=== PATIENT | male | born 1945 | race Caucasian/White ===

== ENCOUNTER 2020-09-17 07:23 | Day surgery (SDC) | payer OTHER, BC ==
[2020-09-15 11:01] VITALS: BMI 24.5
[2020-09-17] MEDS ORDERED: LIDOCAINE HCL 1%, 10 MG/ML (20ML VIAL) ONE (09:40)
[2020-09-17] MEDS ORDERED: oxyCODONE HCL 5 MG TABLET PO PRN (09:57)
[2020-09-17] MEDS ORDERED: ONDANSETRON 4 MG/2 ML VIAL IVPUSH PRN (09:57)
[2020-09-17] MEDS ORDERED: LACTATED RINGERS SOLUTION 1,000 ML IV SCH (10:00)
[2020-09-17] MEDS ORDERED: PROPOFOL 20 ML ONE ×2 (10:00)
[2020-09-17] MEDS ORDERED: BUPIVACAINE HCL/PF 0.5% (5 MG/ML) 30 ML VIAL IJ ONE (10:14)
[2020-09-17] MEDS ORDERED: LIDOCAINE HCL 1%, 10 MG/ML (50 mL VIAL) INF ONE (10:19)
[2020-09-17 11:13] VITALS: TEMP 97.8
[2020-09-17 12:09] VITALS: BP 110/65; PULSE 81
== END 2020-09-17 12:00 | disposition home or self-care (01) ==
LOC: FASU 07:23
PROVIDERS: ATTEND Orthopaedic Surgery
PROC: 0RBN4ZZ Excision of Right Wrist Joint, Percutaneous Endoscopic Approach (ICD-10-PCS; 2020-09-17)
PROC: 01N50ZZ Release Median Nerve, Open Approach (ICD-10-PCS; principal; 2020-09-17 10:35)
DX: G56.01 Carpal tunnel syndrome, right upper limb (principal); M65.831 Other synovitis and tenosynovitis, right forearm
CPT/HCPCS: 82962; 88304-TC

== ENCOUNTER 2021-04-21 04:34 | Day surgery (SDC) | payer OTHER, BC ==
[2021-04-19 11:27] VITALS: BMI 23.5
[~2021-04-21 04:34] MED LIST: ACETAMINOPHEN 325 MG TABLET (FP) PO PRN; BSS (NA/CA/MG/K) BALANCED SALT SOLUTION OPHTH SOLN 15 ML BOTTLE OD ONE; CHONDROITIN SU A/HYALUR SOD 1 KIT IO ONE; LIDOCAINE HCL 1% PRESERVATIVE FREE - 30ML VIAL IO ONE; PHENYLEPHRINE/KETOROLAC 4 ML VIAL IO ONE; POVIDONE-IODINE 5% OPHTHALMIC PREP 30 ML SOLUTION OD ONE; TETRACAINE 0.5% OPHTH SOLN 2 ML BOTTLE TP ONE
[2021-04-21] MEDS ORDERED: KETOROLAC TROMETHAMINE 0.5% EYE DROP 1 DROP DROPS ONE (07:02)
[2021-04-21] MEDS ORDERED: TROPICAMIDE 1% OPHTH SOLN 15 ML BOTTLE ONE (07:02)
[2021-04-21] MEDS ORDERED: CYCLOPENTOLATE HCL 1% OPHTH SOLN 2 ML BOTTLE ONE (07:02)
[2021-04-21] MEDS ORDERED: OFLOXACIN 0.3% OPHTHALMIC SOLUTION 5 ML BOTTLE ONE (07:03)
[2021-04-21] MEDS ORDERED: PHENYLEPHRINE 2.5% OPTHALMIC DROP BOTTLE ONE (07:03)
[2021-04-21] MEDS: OFLOXACIN 0.3% OPHTHALMIC SOLUTION 5 ML BOTTLE OP SCH ×3 (07:18→07:39)
[2021-04-21] MEDS: CYCLOPENTOLATE HCL 1% OPHTH SOLN 2 ML BOTTLE OP SCH ×3 (07:18→07:38)
[2021-04-21] MEDS: KETOROLAC TROMETHAMINE 0.5% EYE DROP 1 DROP DROPS OP SCH ×3 (07:18→07:39)
[2021-04-21] MEDS: PHENYLEPHRINE 2.5% OPHTH SOLN 15 ML BOTTLE OP SCH ×3 (07:19→07:39)
[2021-04-21] MEDS: TROPICAMIDE 1% OPHTH SOLN 15 ML BOTTLE OP SCH ×3 (07:19→07:39)
[2021-04-21 07:22] VITALS: TEMP 98.6
[2021-04-21] MEDS ORDERED: LIDOCAINE HCL/PF 1% SDV 5ML VIAL ONE (07:28)
[2021-04-21] MEDS ORDERED: TETRACAINE 0.5% OPHTH SOLN 2 ML BOTTLE ONE (07:29)
[2021-04-21] MEDS ORDERED: POVIDONE-IODINE 5% OPHTHALMIC PREP 30 ML SOLUTION ONE (07:29)
[2021-04-21] MEDS ORDERED: MIDAZOLAM HCL 2 MG/2 ML SINGLE DOSE VIAL ONE (08:56)
[2021-04-21] MEDS ORDERED: TETRACAINE 0.5% OPHTH SOLN 2 ML BOTTLE TP ONE (09:05)
[2021-04-21] MEDS ORDERED: POVIDONE-IODINE 5% OPHTHALMIC PREP 30 ML SOLUTION OD ONE (09:08)
[2021-04-21] MEDS ORDERED: BSS (NA/CA/MG/K) BALANCED SALT SOLUTION OPHTH SOLN 15 ML BOTTLE OD ONE (09:16)
[2021-04-21] MEDS ORDERED: CHONDROITIN SU A/HYALUR SOD 1 KIT IO ONE (09:17)
[2021-04-21] MEDS ORDERED: LIDOCAINE HCL 1% PRESERVATIVE FREE - 30ML VIAL IO ONE (09:17)
[2021-04-21] MEDS ORDERED: PHENYLEPHRINE/KETOROLAC 4 ML VIAL IO ONE (09:25)
[2021-04-21] MEDS ORDERED: ACETAMINOPHEN 325 MG TABLET (FP) PO ONE (10:00)
[2021-04-21] MEDS ORDERED: ACETAMINOPHEN 325 MG TABLET (FP) ONE (10:00)
[2021-04-21] MEDS ORDERED: ONDANSETRON 4 MG/2 ML VIAL IVPUSH PRN (10:21)
[2021-04-21] MEDS ORDERED: LACTATED RINGERS SOLUTION 1,000 ML IV SCH (10:30)
[2021-04-21 10:32] VITALS: BP 103/67; PULSE 81
== END 2021-04-21 11:47 | disposition home or self-care (01) ==
LOC: JASU-SURG 04:34
PROVIDERS: ATTEND Ophthalmology
PROC: 08RJ3JZ Replacement of Right Lens with Synthetic Substitute, Percutaneous Approach (ICD-10-PCS; principal; 2021-04-21 09:00)
DX: H26.9 Unspecified cataract (principal); H52.201 Unspecified astigmatism, right eye; E11.9 Type 2 diabetes mellitus without complications; I10 Essential (primary) hypertension
CPT/HCPCS: 82962; J1097

== ENCOUNTER 2021-05-12 05:22 | Day surgery (SDC) | payer OTHER, BC ==
[2021-05-10 13:55] VITALS: BMI 23.5
[~2021-05-12 05:22] MED LIST changes: -BSS (NA/CA/MG/K) BALANCED SALT SOLUTION OPHTH SOLN 15 ML BOTTLE OD ONE; +BSS (NA/CA/MG/K) BALANCED SALT SOLUTION OPHTH SOLN 15 ML BOTTLE OS ONE; +EPINEPHrine/PF 1 MG/1 ML (1:1,000) AMPULE IO ONE; -PHENYLEPHRINE/KETOROLAC 4 ML VIAL IO ONE; -POVIDONE-IODINE 5% OPHTHALMIC PREP 30 ML SOLUTION OD ONE; +POVIDONE-IODINE 5% OPHTHALMIC PREP 30 ML SOLUTION OS ONE; +TETRACAINE 0.5% OPHTH SOLN 2 ML BOTTLE OS ONE; -TETRACAINE 0.5% OPHTH SOLN 2 ML BOTTLE TP ONE
[2021-05-12] MEDS ORDERED: KETOROLAC TROMETHAMINE 0.5% EYE DROP 1 DROP DROPS ONE (07:10)
[2021-05-12] MEDS ORDERED: TROPICAMIDE 1% OPHTH SOLN 15 ML BOTTLE ONE (07:10)
[2021-05-12] MEDS ORDERED: PHENYLEPHRINE 2.5% OPTHALMIC DROP BOTTLE ONE (07:11)
[2021-05-12] MEDS ORDERED: CYCLOPENTOLATE HCL 1% OPHTH SOLN 2 ML BOTTLE ONE (07:11)
[2021-05-12] MEDS ORDERED: OFLOXACIN 0.3% OPHTHALMIC SOLUTION 5 ML BOTTLE ONE (07:11)
[2021-05-12] MEDS: TROPICAMIDE 1% OPHTH SOLN 15 ML BOTTLE OP SCH ×2 (07:25→07:30)
[2021-05-12] MEDS: PHENYLEPHRINE 2.5% OPHTH SOLN 15 ML BOTTLE OP SCH ×3 (07:25→07:35)
[2021-05-12] MEDS: CYCLOPENTOLATE HCL 1% OPHTH SOLN 2 ML BOTTLE OP SCH ×3 (07:25→07:35)
[2021-05-12] MEDS: KETOROLAC TROMETHAMINE 0.5% EYE DROP 1 DROP DROPS OP SCH ×3 (07:25→07:35)
[2021-05-12] MEDS: OFLOXACIN 0.3% OPHTHALMIC SOLUTION 5 ML BOTTLE OP SCH ×3 (07:25→07:35)
[2021-05-12] MEDS ORDERED: EPINEPHrine/PF 1 MG/1 ML (1:1,000) AMPULE ONE (08:05)
[2021-05-12] MEDS ORDERED: LIDOCAINE HCL/PF 1% SDV 5ML VIAL ONE (08:05)
[2021-05-12] MEDS ORDERED: TETRACAINE 0.5% OPHTH SOLN 2 ML BOTTLE ONE (08:06)
[2021-05-12] MEDS ORDERED: POVIDONE-IODINE 5% OPHTHALMIC PREP 30 ML SOLUTION ONE (08:06)
[2021-05-12] MEDS ORDERED: MIDAZOLAM HCL 2 MG/2 ML SINGLE DOSE VIAL ONE (08:56)
[2021-05-12] MEDS ORDERED: TETRACAINE 0.5% OPHTH SOLN 2 ML BOTTLE OS ONE (09:12)
[2021-05-12] MEDS ORDERED: POVIDONE-IODINE 5% OPHTHALMIC PREP 30 ML SOLUTION OS ONE (09:16)
[2021-05-12] MEDS ORDERED: LIDOCAINE HCL 1% PRESERVATIVE FREE - 30ML VIAL IO ONE (09:17)
[2021-05-12] MEDS ORDERED: BSS (NA/CA/MG/K) BALANCED SALT SOLUTION OPHTH SOLN 15 ML BOTTLE OS ONE (09:20)
[2021-05-12] MEDS ORDERED: CHONDROITIN SU A/HYALUR SOD 1 KIT IO ONE (09:24)
[2021-05-12] MEDS ORDERED: PHENYLEPHRINE/KETOROLAC 4 ML VIAL IO ONE (09:28)
[2021-05-12] MEDS ORDERED: ACETAMINOPHEN 325 MG TABLET (FP) ONE (10:02)
[2021-05-12] MEDS ORDERED: ACETAMINOPHEN 325 MG TABLET (FP) PO ONE (10:05)
[2021-05-12 12:15] VITALS: BP 102/57; PULSE 81; TEMP 98.3
== END 2021-05-12 11:00 | disposition home or self-care (01) ==
LOC: JASU-SURG 05:22
PROVIDERS: ATTEND Ophthalmology
PROC: 08RK3JZ Replacement of Left Lens with Synthetic Substitute, Percutaneous Approach (ICD-10-PCS; principal; 2021-05-12 09:00)
DX: H26.9 Unspecified cataract (principal); H52.202 Unspecified astigmatism, left eye
CPT/HCPCS: 82962; J1097

== ENCOUNTER 2022-12-20 08:16 | Day surgery (SDC) | payer OTHER, BC ==
[2022-12-13 10:54] VITALS: BMI 23.5
[2022-12-20] MEDS ORDERED: oxyCODONE HCL 5 MG TABLET PO PRN (09:48)
[2022-12-20] MEDS ORDERED: ceFAZolin SODIUM 1 GM VIAL ONE ×2 (10:07→12:15)
[2022-12-20] MEDS ORDERED: VANCOMYCIN 1,000 MG VIAL (RESTRICTED TO ID ONLY) ONE (10:07)
[2022-12-20] MEDS ORDERED: MIDAZOLAM HCL 2 MG/2 ML SINGLE DOSE VIAL ONE (10:19)
[2022-12-20] MEDS ORDERED: BUPIVACAINE HCL/PF 0.5% (5MG/ML) 10 ML VIAL ONE (10:20)
[2022-12-20] MEDS ORDERED: FENTANYL CITRATE/PF 50 MCG/ML VIAL ONE (10:20)
[2022-12-20] MEDS ORDERED: ROPIVACAINE HCL 0.5% 30ML VIAL ONE (10:20)
[2022-12-20] MEDS ORDERED: CELECOXIB 200 MG CAPSULE PO ONE (10:30)
[2022-12-20] MEDS ORDERED: CEFAZOLIN 2 GM in DEXTROSE 5%-WATER - 50 ML IVPB ONE (10:30)
[2022-12-20] MEDS ORDERED: THROMBIN (BOVINE) 5,000 UNIT VIAL TP ONE (10:40)
[2022-12-20] MEDS ORDERED: TRANEXAMIC ACID 1000 MG/10 ML VIAL ONE ×2 (10:40→12:42)
[2022-12-20] MEDS ORDERED: TRANEXAMIC ACID 1000 MG/10 ML VIAL IVPUSH ONE (11:00)
[2022-12-20] MEDS ORDERED: PROPOFOL 40 ML ONE (11:08)
[2022-12-20] MEDS ORDERED: ONDANSETRON 4 MG/2 ML VIAL ONE (12:15)
[2022-12-20] MEDS ORDERED: HYDROCORTISONE SOD SUCCINATE 100 MG/2 ML VIAL ONE (12:15)
[2022-12-20] MEDS ORDERED: PHENYLEPHRINE HCL 10 MG/1 ML SINGLE DOSE VIAL ONE (12:15)
[2022-12-20] MEDS ORDERED: ACETAMINOPHEN INJECTION 100 ML IVPB ONE (13:29)
[2022-12-20] MEDS: ACETAMINOPHEN 1000 MG/100 ML BAG IVPB ONE (13:35)
[2022-12-20] MEDS: oxyCODONE HCL 5 MG TABLET PO PRN ×2 (14:46→20:00)
[2022-12-20] MEDS: LEFLUNOMIDE 10 MG TABLET PO SCH (21:23)
[2022-12-20] MEDS: ATORVASTATIN CA 10 MG TABLET (FP) PO SCH (21:23)
[2022-12-20] MEDS: MONTELUKAST NA 10 MG TABLET PO SCH (21:23)
[2022-12-20] MEDS ORDERED: PATIENT'S OWN MEDICATION (NON-FORMULARY) (Simvastatin [Zocor] 20 MG Tablet) PO SCH (22:00)
[2022-12-20] MEDS ORDERED: PATIENT'S OWN MEDICATION (NON-FORMULARY) (Vibegron [Gemtesa] 75 MG Tablet) PO SCH (22:00)
[2022-12-20] MEDS ORDERED: PATIENT'S OWN MEDICATION (NON-FORMULARY) (Azelastine Hcl [Azelastine Hcl] 137 MCG/0.137 ML NS SCH (22:00)
[2022-12-20] MEDS: CEFAZOLIN SODIUM 2 GM in DEXTROSE 5%-WATER 100 ML IVPB SCH (23:03)
[2022-12-21] MEDS: oxyCODONE HCL 5 MG TABLET PO PRN ×2 (00:31→03:34)
[2022-12-21] MEDS ORDERED: ONDANSETRON 4 MG/2 ML VIAL IVPB PRN (04:00)
[2022-12-21] MEDS: ACETAMINOPHEN 1000 MG/100 ML BAG IVPB ONE (05:15)
[2022-12-21] MEDS: CEFAZOLIN SODIUM 2 GM in DEXTROSE 5%-WATER 100 ML IVPB SCH (05:58)
[2022-12-21] MEDS: glipiZIDE 10 MG TABLET (FP) PO SCH (05:59)
[2022-12-21] MEDS: TAMSULOSIN HCL 0.4 MG CAP PO SCH (07:56)
[2022-12-21] MEDS: ACETAMINOPHEN 1000 MG/100 ML BAG IVPB PRN ×3 (09:18→22:09)
[2022-12-21] MEDS: HYDROCHLOROTHIAZIDE 12.5 MG CAPSULE (FP) PO SCH (09:21)
[2022-12-21] MEDS: PANTOPRAZOLE 20 MG TABLET PO SCH (09:21)
[2022-12-21] MEDS: LISINOPRIL 20 MG TABLET PO SCH (09:21)
[2022-12-21] MEDS: DOCUSATE SODIUM 100 MG CAPSULE (FP) PO SCH (09:21)
[2022-12-21] MEDS: FLUTICASONE/UMECLIDIN/VILANTER(100-62.5-25 TRELEGY ELLIPTA) INAHLER IH SCH (09:22)
[2022-12-21] MEDS: TOLTERODINE TARTRATE LA 4 MG CAP.SR.24H (FP) PO SCH (09:22)
[2022-12-21] MEDS: FLUTICASONE PROP 0.05% 16 GM NASAL SPRAY NS SCH (09:22)
[2022-12-21] MEDS: predniSONE 10 MG TABLET (UD) PO SCH (09:22)
[2022-12-21] MEDS ORDERED: TRIAMCINOLONE ACETONIDE NS SCH (10:00)
[2022-12-21] MEDS ORDERED: PATIENT'S OWN MEDICATION (NON-FORMULARY) (Lisinopril/Hydrochlorothiazide [Lisinopril-Hctz PO SCH (10:00)
[2022-12-21] MEDS ORDERED: FESOTERODINE FUMARATE 8 MG PO SCH (10:00)
[2022-12-21 10:06] LABS: HEMATOCRIT 37.1 % (35.4-49); HEMOGLOBIN 12.3 G/dL (11.7-16.9); MCH 31.9 pg (25.7-33.7); MCHC 33.2 g/dl (32.0-35.9); MEAN CELL VOLUME 96.1 fl (80-96); MEAN PLT VOLUME 7.9 fl (7.5-11.1); PLATELET COUNT 163.6 10^3/uL (134-434); RBC 3.86 10^6/uL (4.00-5.60); RDW 15.5 % (11.9-15.9); WHITE BLOOD COUNT 11.6 10^3/uL (4.0-10.8)
[2022-12-21] MEDS ORDERED: CALCIUM CARBONATE 650 MG TABLET PO PRN (10:21)
[2022-12-21] MEDS ORDERED: KETOROLAC TROMETHAMINE 30 MG/1 ML VIAL IVPUSH ONE (13:30)
[2022-12-21] MEDS: KETOROLAC TROMETHAMINE 30 MG/1 ML VIAL IVPUSH PRN (20:01)
[2022-12-21] MEDS: ATORVASTATIN CA 10 MG TABLET (FP) PO SCH (21:09)
[2022-12-21] MEDS: MONTELUKAST NA 10 MG TABLET PO SCH (21:10)
[2022-12-21] MEDS: LEFLUNOMIDE 10 MG TABLET PO SCH (21:10)
[2022-12-22] MEDS: glipiZIDE 10 MG TABLET (FP) PO SCH (06:23)
[2022-12-22] MEDS: ACETAMINOPHEN 1000 MG/100 ML BAG IVPB PRN (06:23)
[2022-12-22 06:57] VITALS: RESP 20
[2022-12-22] MEDS ORDERED: ASPIRIN 325 MG TABLET PO SCH (08:00)
[2022-12-22] MEDS ORDERED: traMADol HCL 50 MG TABLET PO PRN (08:11)
[2022-12-22] MEDS: TAMSULOSIN HCL 0.4 MG CAP PO SCH (08:44)
[2022-12-22] MEDS: KETOROLAC TROMETHAMINE 30 MG/1 ML VIAL IVPUSH PRN (08:44)
[2022-12-22 08:48] LABS: HEMATOCRIT 37.7 % (35.4-49); HEMOGLOBIN 12.6 G/dL (11.7-16.9); MCH 31.8 pg (25.7-33.7); MCHC 33.3 g/dl (32.0-35.9); MEAN CELL VOLUME 95.5 fl (80-96); MEAN PLT VOLUME 8.4 fl (7.5-11.1); PLATELET COUNT 163.9 10^3/uL (134-434); RBC 3.95 10^6/uL (4.00-5.60); RDW 14.5 % (11.9-15.9); WHITE BLOOD COUNT 12.4 10^3/uL (4.0-10.8)
[2022-12-22] MEDS: LISINOPRIL 20 MG TABLET PO SCH (09:29)
[2022-12-22] MEDS: TOLTERODINE TARTRATE LA 4 MG CAP.SR.24H (FP) PO SCH (09:29)
[2022-12-22] MEDS: DOCUSATE SODIUM 100 MG CAPSULE (FP) PO SCH (09:29)
[2022-12-22] MEDS: PANTOPRAZOLE 20 MG TABLET PO SCH (09:29)
[2022-12-22] MEDS: HYDROCHLOROTHIAZIDE 12.5 MG CAPSULE (FP) PO SCH (09:29)
[2022-12-22] MEDS: predniSONE 10 MG TABLET (UD) PO SCH (09:29)
[2022-12-22] MEDS: FLUTICASONE/UMECLIDIN/VILANTER(100-62.5-25 TRELEGY ELLIPTA) INAHLER IH SCH (09:30)
[2022-12-22] MEDS: FLUTICASONE PROP 0.05% 16 GM NASAL SPRAY NS SCH (09:30)
[2022-12-22] MEDS ORDERED: ACETAMINOPHEN 500 MG TABLET (FP) PO PRN (13:49)
[2022-12-22 14:33] VITALS: BP 118/66; PULSE 74; TEMP 99.4
[2022-12-26] MEDS ORDERED: PATIENT'S OWN MEDICATION (NON-FORMULARY) (Dulaglutide [Trulicity] 1.5 MG/0.5 ML Pen.Injctr SQ SCH (10:00)
== END 2022-12-22 15:37 | disposition home health service (06) ==
LOC: FASUSAT 08:16 → FM/S 14:08 → FASUSAT 12-22 15:37
PROVIDERS: ATTEND Orthopaedic Surgery
PROC: 0SRC0J9 Replacement of Right Knee Joint with Synthetic Substitute, Cemented, Open Approach (ICD-10-PCS; 2022-12-20)
PROC: 8E0Y0CZ Robotic Assisted Procedure of Lower Extremity, Open Approach (ICD-10-PCS; 2022-12-20)
PROC: 0SPC0JZ Removal of Synthetic Substitute from Right Knee Joint, Open Approach (ICD-10-PCS; principal; 2022-12-20 11:23)
DX: T84.89XA Other specified complication of internal orthopedic prosthetic devices, implants and grafts, initial encounter (principal); Y79.2 Prosthetic and other implants, materials and accessory orthopedic devices associated with adverse incidents; Y92.9 Unspecified place or not applicable; Y83.8 Other surgical procedures as the cause of abnormal reaction of the patient, or of later complication, without mention of misadventure at the time of the procedure
CPT/HCPCS: 20985; 27487; C1776; S2900; 36415; 73560-TC-RT-FY; 81003; 81015; 82962; 85027; 87040; 87086; 88300-TC; 94760; 97010-GP; 97116-GP; 97162-GP; C1713; C1889

== ENCOUNTER 2023-02-14 06:37 | Day surgery (SDC) | payer OTHER, BC ==
[2023-02-13 12:18] VITALS: BMI 23.5
[2023-02-14] MEDS ORDERED: PROPOFOL 20 ML ONE (07:14)
[2023-02-14] MEDS ORDERED: ACETAMINOPHEN INJECTION 100 ML IVPB ONE (08:36)
[2023-02-14] MEDS ORDERED: ACETAMINOPHEN 1000 MG/100 ML BAG IVPB ONE (08:39)
[2023-02-14 09:36] VITALS: RESP 18; TEMP 96.6
[2023-02-14 11:39] VITALS: BP 128/74; PULSE 81
== END 2023-02-14 11:20 | disposition home or self-care (01) ==
LOC: FASU 06:37
PROVIDERS: ATTEND Orthopaedic Surgery
PROC: 0SSCXZZ Reposition Right Knee Joint, External Approach (ICD-10-PCS; principal; 2023-02-14 08:11)
DX: M25.661 Stiffness of right knee, not elsewhere classified (principal); Z96.651 Presence of right artificial knee joint
CPT/HCPCS: 82962; 94760